=== PATIENT | male | born 1960 | race Caucasian/White ===

== ENCOUNTER → 2019-12-25 11:44 | Outpatient (CLI) | payer OTHER, SELFPAY ==
[2019-12-25 12:49] LABS: Absolute Lymphocyte Count 1.44 X10^3/uL (0.83-4.51); Absolute Neutrophil Count 5.8 X10^3/uL (2.0-7.7); Basophil# 0.04 X10^3/uL; Basophil% 0.5 % (0-1); Eosinophil# 0.25 X10^3/uL; Eosinophils% 2.9 % (0-5); Hematocrit 45.4 % (40-54); Lymphocyte # 1.44 X10^3/ul (4.0); Lymphocyte % 16.6 % (19-41); Mean Corpuscular Hgb 31.4 pg (27.0-32.0); Mean Platelet Vol. 10.1 fl (6.2-12.0); Monocyte# 1.12 X10^3/uL; Monocyte% 12.9 % (0-10); NRBC Flagged by Analyzer 0 % (0-5); Neutrophil # 5.81 X10^3/uL (2.7-7.7); Neutrophil % 66.9 % (47-70); Platelet Count 267 K/mm3 (150-450); RBC Distribution Width CV 14.4 % (11.6-14.6); RBC Distribution Width SD 49.7 fl (35.1-43.9); Red Blood Count 4.78 M/mm3 (4.6-6.2); White Blood Count 8.7 K/mm3 (4.4-11.0)
[2019-12-25 12:51] LABS: Erythrocyte Sedimentation Rate 26 mm/hr (0-20)
[2019-12-25 13:14] LABS: CRP < 2.90 mg/L (0.0-3.0)
== END ==
PROVIDERS: PCP Family Medicine; Visit Provider Physician Assistant Surgical
DX: Z96.651 Presence of right artificial knee joint (principal)
CPT/HCPCS: 36415; 85025; 85652; 86140

== ENCOUNTER → 2019-12-26 12:02 | Outpatient (CLI) | payer OTHER, SELFPAY ==
[2019-12-26 14:07] LABS: Synovial Fld Mononuclear WBC % 78.3 %; Synovial Fld Polynuclear WBC # 0.048 10^3/uL; Synovial Fld Polynuclear WBC % 21.7 %
[2019-12-26 14:10] LABS: RBC /Synovial Fluid 0.013 10^6/uL (0)
[2019-12-26 14:13] LABS: AUTO B FLUID DILUENT BKGD CT WBC <0.1 RBC <0.01 (W<.1,R<.01)
[2019-12-26 14:14] LABS: Appearance /Synovial Fluid Sl Cl (CLEAR); Color / Synovial Fluid Yellow (Pale Yellow); Source / Synovial Fluid RIGHT KNEE
[2019-12-26 14:38] LABS: Lymph 15 %; Monocyte /Synovial Fluid 55 %; Neutrophil 20 % (0-25); Other Cell /Synovial Fluid 10 %
[2019-12-26 14:39] LABS: Body Fluid QC Type(s) BF1Q,BF2Q
[2019-12-27 13:17] LABS: Pathologist Comment Reviewed
[2020-01-03 04:12] LABS: Lyme IgG P18 Ab Absent (.); Lyme IgG P23 Ab Absent (.); Lyme IgG P28 Ab Absent (.); Lyme IgG P30 Ab Absent (.); Lyme IgG P39 Ab Absent (.); Lyme IgG P41 Ab Absent (.); Lyme IgG P45 Ab Absent (.); Lyme IgG P58 Ab Absent (.); Lyme IgG P66 Ab Absent (.); Lyme IgG P93 Ab Absent (.); Lyme IgM P23 Ab Absent (.); Lyme IgM P39 Ab Absent (.); Lyme IgM P41 Ab Absent (.)
[2020-01-03 08:34] LABS: Lyme IgG WB Interpretation Negative (.); Lyme IgM WB Interpretation Negative (.)
== END ==
PROVIDERS: PCP Family Medicine; Visit Provider Specialist
DX: M25.461 Effusion, right knee (principal); Z96.651 Presence of right artificial knee joint
CPT/HCPCS: 36415; 86617; 87015; 87070; 87075; 87101; 87116; 87205; 87206; 89050; 89051